=== PATIENT | male | born 1980 | race Caucasian/White ===

== ENCOUNTER 2018-02-27 07:59 | Inpatient (IN) | payer OTHER ==
[2018-02-27] MEDS ORDERED: ONDANSETRON 4 MG/2 ML VIAL IVP ONE (08:13)
[2018-02-27] MEDS ORDERED: THIAMINE HCL 500 MG in NS 100 ML IV ONE (08:14)
[2018-02-27] MEDS ORDERED: FOLIC ACID 1 MG TAB PO ONE (08:14)
--- NOTE | 2018-02-27 08:17 | EDPHY ---
H & P Stated Complaint: not eating, jaundice, lack of balance.... Time Seen by Provider: 02/27/18 08:08 HPI/ROS: CHIEF COMPLAINT: Hyperventilating, jaundiced, confused HISTORY OF PRESENT ILLNESS: The patient is a 37-year-old alcoholic man who was seen here 3 years ago for small-bowel perforation and foreign body with partial small-bowel resection and appendectomy. His brother and dad are here with him and states that he drinks heavily. He has significant ascites. Brother states that over the last month he has been eating less and less each day. No vomiting. No diarrhea. No fever. This morning brother noticed that he also appeared jaundice. They had scheduled rehab therapy for him on Sunday and hoping to make it till then however he became confused and they decided to bring him to the ER. Brother states that he has also hyperventilating like he often does when he has anxiety attacks. Brother also noticed that he had trouble his balance today. Severity: Severe Modifying factors: Worsened REVIEW OF SYSTEMS: Constitutional: denies: chills, fever, recent illness, recent injury EENTM: denies: blurred vision, double vision, nose congestion Respiratory: denies: cough, shortness of breath Cardiac: denies: chest pain, irregular heart rate, lightheadedness, palpitations Gastrointestinal/Abdominal: denies: abdominal pain, diarrhea, nausea, vomiting, blood streaked stools Genitourinary: denies: dysuria, frequency, hematuria, pain Musculoskeletal: denies: joint pain, muscle pain Skin: denies: lesions, rash, jaundice, bruising Neurological: denies: headache, numbness, paresthesia, tingling, dizziness, weakness Hematologic/Lymphatic: denies: blood clots, easy bleeding, easy bruising Immunologic/allergic: denies: HIV/AIDS, transplant 10 systems reviewed and negative except as noted EXAM: GENERAL: Well-appearing, well-nourished and in no acute distress. HEAD: Atraumatic, normocephalic. EYES: Pupils equal round and reactive to light, extraocular movements intact, sclera anicteric, conjunctiva are normal. ENT: TMs normal, nares patent, oropharynx clear without exudates. Moist mucous membranes. NECK: Normal range of motion, supple without lymphadenopathy or JVD. LUNGS: Rapid deep breathing HEART: Regular rate and rhythm without murmurs, rubs or gallops. ABDOMEN: Large and distended, incisional hernia easily reducible, ascites, nontender, no erythema or warmth. BACK: No CVA tenderness, no spinal tenderness, step-offs or deformities EXTREMITIES: 1+ lower extremity edema in NEUROLOGICAL: Cranial nerves II through XII grossly intact. Normal speech, normal gait. 5/5 strength, normal movement in all extremities, normal sensation , normal reflexes PSYCH: Normal mood, normal affect. SKIN: Warm, dry, normal turgor, no visible rashes or lesions. Source: Patient, Family, Old records Exam Limitations: Clinical condition - Medical/Surgical History Hx Asthma: No Hx Chronic Respiratory Disease: No Hx Diabetes: No Hx Cardiac Disease: No Hx Renal Disease: No Hx Cirrhosis: Yes Hx Alcoholism: Yes Hx HIV/AIDS: No Hx Splenectomy or Spleen Trauma: No Other PMH: Liver disease, ascites. HTN. depression. Alcoholism, withdrawal seizure. Partial small-bowel resection, appendectomy - Family History Significant Family History: No pertinent family hx - Social History Smoking Status: Current every day smoker Alcohol Use: Heavy Constitutional: Initial Vital Signs Temperature (C) 37.0 C 02/27/18 08:01 Heart Rate 108 H 02/27/18 08:01 Respiratory Rate 24 H 02/27/18 08:01 Blood Pressure 119/74 02/27/18 08:01 O2 Sat (%) 92 02/27/18 08:01 O2 Delivery Mode Ventilator O2 (L/minute) 2 Allergies/Adverse Reactions: erythromycin base Allergy (Severe, Verified 05/02/14 16:52) Hives Sulfa (Sulfonamide Antibiotics) Allergy (Severe, Verified 05/02/14 16:52) Hives amoxicillin Allergy (Verified 02/27/18 15:18) Home Medications: Medication Instructions Recorded Multivitamins [Multivitamin (*)] 1 each PO DAILY 02/27/18 Medical Decision Making - Diagnostics EKG Interpretation: An EKG obtained and was read and documented in trace view. Please see trace view for full reading and report. Sinus rhythm no acute arrhythmias or ischemic changes. Imaging Results: Imaging Impressions Chest X-Ray 02/27/18 08:47 Impression: 1. Endotracheal tube in good position with the NG tube extending off the inferior margin of the study. 2. Hypoventilatory chest with perihilar and basilar atelectasis. Procedures: Intubation: emergent intubation. While manually bagging the patient and maintaining the airway. A 7.5 endotracheal tube was placed using the Glidescope. It was placed at 22 cm at the teeth. Placement was confirmed by direct visualization, good color change, and bilateral breath sounds with absent gastric sounds. Chest x-ray is pending. Saturations improved significantly and the procedure was successful. Procedure: Arterial line Ultrasound guidance: Using the linear probe covered in a sterile sheath, a short axis of the vein was obtained. The vein was completely compressible and was identified as separate from the adjacent non-compressible arterial structure. Under real-time guidance, the introducer needle was observed up to the vein, and then punctured it. These images were saved on the database. Central line placement: The indication for the procedure was monitoring of blood pressure and pulse. Maximal sterile barrier technique was uses including cap, gown, sterile gloves, large sheet, hand washing and chlorhexidine prep. The area anesthetized with 1% lidocaine. Right femoral artery was punctured with a 18 gauge IV catheter and the catheter sheath introduced. No wire Seldinger technique used. There were no complications. Blood return, bright red blood. The patient is a conscious for the procedure. The procedure was performed by myself. ED Course/Re-evaluation: The patient's lactate is elevated. I do not think he is septic I do not suspect a source of infection. I think he is acidotic from starvation and alcoholic ketoacidosis. We are giving him vitamins. We will give him a 500 cc bolus. His blood pressure is 100/60. I am somewhat concerned about his volume overload however with his leg edema and ascites and borderline hypoxia. 9:00 a.m. nursing staff called me into the room. The patient had stopped breathing. He appeared to be having a seizure. We began to bag him and moved him to the trauma [place]. We continued to bag but was difficult. He also vomited and was incontinent. We could not feel a pulse. We began CPR. I placed a ETT without sedation. The patient hypoxia improved and pulses were regained. It is not 100% clear to me whether not he lost pulses. He received CPR for about 2 -3 minutes. He also received a dose of epinephrine. He began to wake up and villarreal the tube. He was sedated with Valium. Art line was placed. He now has a heart rate of 100 with the saturation 99% and is intubated. We are awaiting post intubation x-ray. Will place an NG tube is well Miles catheter. During the intubation we are called that his sodium was 112. I ordered 3% saline 100 cc be given over 10 min. This is possibly what caused his seizure. 9:10 a.m. I spoke with hospitalist service will accept to the ICU with Dr. Mcclain. 10:20 a.m. The patient continues to do well. He is slightly tachycardic but blood pressure is improved 114/55. 93% oxygen on the ventilator. Will increase his fentanyl drip. I suspect that he may develop withdrawals. We discussed starting propofol drip noted his blood pressure is more adequate. We will defer this to the inpatient team because he is currently about to go upstairs. Differential Diagnosis: Partial list of the Differential diagnosis considered include but were not limited to; alcoholic ketoacidosis CIS, starvation ketoacidosis, hyponatremia, seizure and although unlikely based on the history and physical exam, I also considered acute coronary disease, tumor, spine to bacterial peritonitis. Critical Care Time: Critical care time spent by me, Dr. Epstein exclusive with this patient was 45 minutes, exclusive of the PA time exclusive of procedures. The organ system that was at risk was cardiovascular and I gave fluids, diagnostics, consultation and admission to prevent worsening of the patient's condition - Data Points Laboratory Results: Laboratory Results 02/27/18 08:15 02/27/18 08:15 02/27/18 02/27/18 02/27/18 08:15 08:15 08:15 WBC RBC Hgb Hct MCV MCH MCHC RDW Plt Count MPV Neut % (Auto) Lymph % (Auto) Marin % (Auto) Eos % (Auto) Baso % (Auto) Nucleat RBC Rel Count Absolute Neuts (auto) Absolute Lymphs (auto) Absolute Monos (auto) Absolute Eos (auto) Absolute Basos (auto) Absolute Nucleated RBC Immature Gran % Immature Gran # Platelet Estimate Pappenheimer Bodies Target Cells Oval Macrocytes Smear Review By PT INR APTT Puncture Site NONE GIVEN Patient Temperature 37.0 DEGREES DEGREES pCO2 28 mmHg L mmHg (34-38) pO2 104 mmHg H mmHg (65-75) Total CO2 17 mEq/L L mEq/L (23-27) ABG pH 7.39 (7.35-7.45) ABG HCO3 17 mEq/L L mEq/L (22-26) ABG O2 Saturation 97 % H % (92-95) ABG Base Excess -6.6 mEq/L L mEq/L (-2.5-2.5) VBG Lactic Acid Total O2 Concentration 2.0 LITERS LITERS Sodium 112 mEq/L L* mEq/L (135-145) Potassium 4.4 mEq/L mEq/L (3.5-5.2) Chloride 73 mEq/L L mEq/L (97-110) Carbon Dioxide 17 mEq/l L mEq/l (22-31) Anion Gap 22 mEq/L H mEq/L (6-14) BUN 10 mg/dL mg/dL (7-23) Creatinine 1.4 mg/dL H mg/dL (0.7-1.3) Estimated GFR 57 Glucose 103 mg/dL H mg/dL (70-100) Calcium 7.7 mg/dL L mg/dL (8.5-10.4) Total Bilirubin 18.4 mg/dL H mg/dL (0.1-1.4) Conjugated Bilirubin 15.4 mg/dL H mg/dL (0.0-0.5) Unconjugated Bilirubin 3.0 mg/dL H mg/dL (0.0-1.1) Icterus Index 12 AST 833 IU/L H IU/L (17-59) ALT 131 IU/L H IU/L (21-72) Alkaline Phosphatase 315 IU/L H IU/L (38-126) Ammonia 73.0 uMOL/L H uMOL/L (9.0-30.0) Total Protein 8.3 g/dL H g/dL (6.3-8.2) Albumin 3.9 g/dL g/dL (3.5-5.0) Lipase 780 IU/L H IU/L (23-300) 02/27/1818 02/27/18 08:15 08:15 08:15 WBC 14.76 10^3/uL H 10^3/uL (3.80-9.50) RBC 4.20 10^6/uL L 10^6/uL (4.40-6.38) Hgb 13.4 g/dL L g/dL (13.7-17.5) Hct 35.0 % L % (40.0-51.0) MCV 83.0 fL fL (81.5-99.8) MCH 31.9 pg pg (27.9-34.1) MCHC TNP RDW TNP Plt Count 122 10^3/uL L 10^3/uL (150-400) MPV 10.4 fL fL (8.7-11.7) Neut % (Auto) 84.8 % H % (39.3-74.2) Lymph % (Auto) 7.0 % L % (15.0-45.0) Marin % (Auto) 5.9 % % (4.5-13.0) Eos % (Auto) 0.1 % L % (0.6-7.6) Baso % (Auto) 0.3 % % (0.3-1.7) Nucleat RBC Rel Count 0.0 % % (0.0-0.2) Absolute Neuts (auto) 12.51 10^3/uL H 10^3/uL (1.70-6.50) Absolute Lymphs (auto) 1.04 10^3/uL 10^3/uL (1.00-3.00) Absolute Monos (auto) 0.87 10^3/uL H 10^3/uL (0.30-0.80) Absolute Eos (auto) 0.01 10^3/uL L 10^3/uL (0.03-0.40) Absolute Basos (auto) 0.05 10^3/uL 10^3/uL (0.02-0.10) Absolute Nucleated RBC 0.03 10^3/uL H 10^3/uL (0-0.01) Immature Gran % 1.9 % H % (0.0-1.1) Immature Gran # 0.28 10^3/uL H 10^3/uL (0.00-0.10) Platelet Estimate DECREASED L (ADEQ) Pappenheimer Bodies 2+ H Target Cells 1+ H Oval Macrocytes 3+ H Smear Review By Pending PT 17.9 SEC H SEC (12.0-15.0) INR 1.46 H (0.83-1.16) APTT 43.0 SEC H SEC (23.0-38.0) Puncture Site Patient Temperature pCO2 pO2 Total CO2 ABG pH ABG HCO3 ABG O2 Saturation ABG Base Excess VBG Lactic Acid 7.1 mmol/L H mmol/L (0.7-2.1) Total O2 Concentration Sodium Potassium Chloride Carbon Dioxide Anion Gap BUN Creatinine Estimated GFR Glucose Calcium Total Bilirubin Conjugated Bilirubin Unconjugated Bilirubin Icterus Index AST ALT Alkaline Phosphatase Ammonia Total Protein Albumin Lipase Medications Given: Furosemide (Lasix Injection) 10 mg IV Q6 JOSE J Stop: 08/26/18 12:29 Last Admin: 02/27/18 14:07 Dose: 10 mg Propofol (Diprivan 10 Mg/Ml (Premix)) 100 mls @ 0 mls/hr IV CONT JOSE J; Titrate PRN Reason: Protocol Stop: 08/26/18 11:29 Last Admin: 02/27/18 11:40 Dose: 100 mls Fentanyl/Sodium Chloride (Fentanyl 10 Mcg/Ml (Premix)) 100 mls @ 0 mls/hr IV CONT JOSE J; As Directed PRN Reason: Protocol Stop: 03/09/18 11:29 Last Admin: 02/27/18 11:40 Dose: 100 mls Norepinephrine 4 mg/ Sodium (Chloride) 504 mls @ 0 mls/hr IV CONT JOSE J; Per Protocol PRN Reason: Protocol Stop: 08/26/18 14:59 Last Admin: 02/27/18 14:56 Dose: 504 mls Discontinued Medications Fentanyl (Sublimaze) 100 mcg IVP EDNOW ONE Stop: 02/27/18 09:23 Last Admin: 02/27/18 09:27 Dose: 100 mcg Fentanyl (Sublimaze) 100 mcg IVP EDNOW ONE Stop: 02/27/18 09:27 Last Admin: 02/27/18 09:32 Dose: Not Given Folic Acid (Folic Acid) 1 mg PO EDNOW ONE Stop: 02/27/18 08:15 Last Admin: 02/27/18 11:46 Dose: Not Given Thiamine HCl 500 mg/ Sodium (Chloride) 105 mls @ 210 mls/hr IV ONCE ONE Stop: 02/27/18 08:43 Last Admin: 02/27/18 09:18 Dose: 105 mls Sodium Chloride (Ns) 500 mls @ 3,000 mls/hr IV ONCE ONE Stop: 02/27/18 08:39 Last Admin: 02/27/18 08:39 Dose: 500 mls Sodium Chloride (Sodium Chloride 3%) 100 mls @ 0 mls/hr IV ONCE ONE PRN Reason: As Directed Stop: 02/27/18 09:01 Last Admin: 02/27/18 09:12 Dose: 100 mls Fentanyl/Sodium Chloride (Fentanyl 10 Mcg/Ml (Premix)) 100 mls @ 0 mls/hr IV CONT JOSE J; As Directed PRN Reason: Protocol Stop: 03/09/18 09:29 Last Admin: 02/27/18 09:55 Dose: 100 mls Sodium Chloride (Sodium Chloride 3%) 50 mls @ 0 mls/hr IV ONCE ONE PRN Reason: As Directed Stop: 02/27/18 12:31 Last Admin: 02/27/18 12:30 Dose: 50 mls Albumin Human (Alburx 5) 250 mls @ 0 mls/hr IV ONCE ONE PRN Reason: As Directed Stop: 02/27/18 13:31 Last Admin: 02/27/18 13:45 Dose: 250 mls Midazolam HCl (Versed) 10 mg IVP EDNOW ONE Stop: 02/27/18 10:03 Last Admin: 02/27/18 08:55 Dose: 10 mg Ondansetron HCl (Zofran) 4 mg IVP EDNOW ONE Stop: 02/27/18 08:14 Last Admin: 02/27/18 08:21 Dose: 4 mg Departure - Departure Disposition: [facility] Inpatient Acute Clinical Impression: Hyponatremia, Alcoholic ketoacidosis, Seizure Condition: Critical
--- NOTE | 2018-02-27 08:26 | CPEKG ---
Test Reason : OPEN Blood Pressure : / mmHG Vent. Rate : 096 BPM Atrial Rate : 096 BPM P-R Int : 172 ms QRS Dur : 088 ms QT Int : 367 ms P-R-T Axes : 064 -26 004 degrees QTc Int : 464 ms Sinus rhythm Borderline left axis deviation Confirmed by Timmy Epstein ([id number]) on 02/27/2018 8:26:30 AM Referred By: Confirmed By:Timmy Epstein
[2018-02-27] MEDS ORDERED: NS 500 ML IV ONE (08:30)
[2018-02-27 08:47] LABS: INR 1.46 (0.83-1.16); PROTIME(PATIENT) 17.9 SEC (12.0-15.0)
[2018-02-27] MEDS ORDERED: MIDAZOLAM 10 MG/2 ML VIAL ONE (08:53)
[2018-02-27] MEDS ORDERED: MIDAZOLAM 2 MG/2 ML VIAL ONE (08:53)
[2018-02-27] MEDS ORDERED: EPINEPHrine 1 MG/10 ML SYR IVP ONE (09:00)
[2018-02-27] MEDS ORDERED: SODIUM Cl 3% 100 ML IV ONE ×2 (09:00→20:30)
[2018-02-27] MEDS ORDERED: fentaNYL 100 MCG/2 ML INJ IVP ONE ×2 (09:22→09:26)
[2018-02-27] MEDS ORDERED: fentaNYL/NACL 100 ML IV SCH ×2 (09:23→09:30)
[2018-02-27] MEDS ORDERED: MIDAZOLAM 2 MG/2 ML VIAL IVP ONE (10:02)
[2018-02-27 10:13] LABS: PLATELET COUNT 122 10^3/uL (150-400)
[2018-02-27] MEDS ORDERED: PROPOFOL/EMULSION 1,000 MG/100 ML BOTTLE IV ONE (10:54)
[2018-02-27] MEDS ORDERED: FLUMAZENIL 0.5 MG/5 ML MDV IVP PRN (10:55)
[2018-02-27] MEDS ORDERED: ALTEPLASE 2 MG VIAL IVP PRN (11:24)
[2018-02-27] MEDS: fentaNYL/NACL 100 ML IV SCH ×2 (11:40→20:14)
[2018-02-27] MEDS: PROPOFOL/EMULSION 100 ML IV SCH ×2 (11:40→20:13)
[2018-02-27] MEDS ORDERED: SODIUM Cl 3% 50 ML IV ONE (12:30)
[2018-02-27] MEDS ORDERED: FUROSEMIDE 20 MG/2 ML VIAL IV SCH (12:30)
[2018-02-27] MEDS ORDERED: ALBUMIN 5% 250 ML BOTTLE IV ONE (13:22)
[2018-02-27] MEDS ORDERED: ALBUMIN 5% 250 ML IV ONE (13:30)
--- NOTE | 2018-02-27 14:02 | GHP ---
DATE OF ADMISSION: 02/27/2018 CHIEF COMPLAINT: Altered mental status. HISTORY: The patient is a 37-year-old male brought into the emergency room today by his brother. The patient does have a history of alcoholism. Family had scheduled an intervention to put him into rehab this upcoming Sunday. They had noticed increased intermittent jaundice over the last 2 weeks. He has had almost no oral intake at all for 3 weeks. Last , he "fell off a denise" with his anxiety and depression becoming acutely worse. He has been lying in his room on the floor moaning. Finally, his brother carried him to the emergency room today. They noticed some abdominal distention on their way to the ER. They noticed leg edema yesterday. He has been confused. They are unclear exactly how much alcohol he is drinking as they believe he is hiding it. They visualized him drinking 4-5 beers per night, but he is home alone all day. He has been extraordinarily depressed and also has a history of anxiety with panic disorders and uses alcohol to treat these conditions. He was from his 3 years ago and has not rebounded from that. Upon arrival to the emergency room, he developed a seizure. He required emergent intubation. They thought they lost a pulse, and he briefly got CPR and 1 mg of IV epi, although it is unclear whether he ever truly arrested as it was relatively brief. He was subsequently found to have a sodium of 112, and that is felt to be the reason for his seizure. PAST MEDICAL HISTORY: 1. Depression. 2. Anxiety with panic disorder. 3. Nerve deafness, right ear. PAST SURGICAL HISTORY: Small-bowel resection and appendectomy for foreign body. MEDICATIONS: Please see computer record for full detailed list. ALLERGIES: To sulfa and erythromycin. SOCIAL HISTORY: He does not smoke. He smokes marijuana only very rarely. Alcohol history as above. Family believes his alcohol use has been heavy for the last 4 years. He is from his . His is a cardiovascular surgeon at [employer] in [place]. His went to [place] and then matched at [facility] for CT surgery. The patient did not do well with the move to [place]. They think that is when he started drinking heavily. Three years ago his brother drove to [place] and brought him home, and he has been living with his brother ever since. 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 Due to the patient's mental health and physical health, he has not been working recently. REVIEW OF SYSTEMS: Complete review of systems obtained. Review of systems negative regarding constitutional, HEENT, GI, pulmonary, cardiovascular, , hematologic, musculoskeletal, endocrine, psych, except for positives and negatives as in HPI. Review of systems is done through the father and the brother as the patient is currently intubated. FAMILY HISTORY: Reviewed and noncontributory to presenting complaint. PHYSICAL EXAMINATION: GENERAL: This is a well-developed, well-nourished male, intubated, sedated. EYES: Scleral icterus. Pupils reactive. VITAL SIGNS: Temp is 36.2, pulse 130, blood pressure 90/59, saturating 93% on the vent at 100 %. ENT: Unable to assess hearing. He is endotracheally intubated. NECK: Trachea midline. No thyromegaly. CHEST: Lungs clear to auscultation bilaterally. CARDIOVASCULAR SYSTEM: Tachycardic. No murmur. 2+ lower extremity edema. ABDOMEN: Massively distended, concerning for ascites. Periumbilical hernia. Scar from his previous small bowel resection surgery. SKIN: Warm, dry, and intact without rash. He is jaundiced. MUSCULOSKELETAL: No cyanosis or clubbing. Moving all extremities equally. Otherwise, unable to assess further neuro exam. PSYCH: He is intubated, sedated. LABORATORY DATA: White count 14.73, hematocrit 35, platelets 122. Sodium 112, potassium 4.4, chloride 73, bicarb 17, BUN 10 and creatinine 1.4, glucose 103. Alcohol level is 267. Total bilirubin 18.4, conjugated bilirubin 15.4. AST is 833, ALT is 131. Ammonia is 73, lactate is 7.1. EKG viewed by me. My personal interpretation is normal sinus rhythm. No ST-T wave changes. Chest x- ray: There is an ET tube in good position. ASSESSMENT AND PLAN: 1. Acute hepatic failure, suspect due to alcohol. I have consulted GI and spoken with Dr. Castro. She recommends Doppler ultrasound. However, I spoke with Dr. Uriostegui of Radiology, and given the patient's massive abdominal distention, they cannot see anything on ultrasound. He strongly recommends a CT scan of the abdomen and pelvis with contrast. Should also calculate discriminant function and consider steroids if elevated. I will defer to Dr. Castro. 2. Critical hyponatremia. He will need very slow correction. I have consulted Nephrology, and Dr. Hawkins is managing. 3. Acute respiratory failure. He is intubated. Dr. Knowles will see him. 4. Seizure. This is probably due to his hyponatremia as well as early alcohol withdrawal. 5. Acute hepatic encephalopathy. Will start lactulose if he is able to tolerate it from a GI standpoint. 6. Alcoholism. Anticipate he will withdraw. He is currently intubated. 7. Lactic acid elevation. This was done shortly after his respiratory and possible cardiac arrest. Will recheck it and trend. CODE STATUS: Full. ADMISSION STATUS: 1. Will admit to inpatient as he is critically ill. Anticipate greater than 2 midnights. 2. Critical care time spent is 1 hour. DVT PROPHYLAXIS: He is high risk, and currently I do not see a contraindication to subcu Lovenox. /[id number]/MODL MTDD
--- NOTE | 2018-02-27 14:37 | PDMN ---
Medical Necessity Medical necessity: Pt meets inpt criteria per MD order and [facility] [id number] Liver Disease Complications. 37 y/o w/hx alcoholism admitted w/acute hepatic failure, critical hyponatremia (sodium 112), acute respiratory failure requiring intubation, seizure, acute hepatic encephalopathy, and alcoholism. GI, nephrology, and intensive care consults/following. Est LOS>2MN for critically ill pt.
[2018-02-27 14:40] LABS: HEPATITIS C ANTIBODY TOTAL NEGATIVE (NEGATIVE); HIV TYPE 1 AND 2 NEGATIVE (NEGATIVE)
[2018-02-27] MEDS ORDERED: PROTOCOL POTASSIUM 1 DOSE MISC PRN (14:44)
[2018-02-27] MEDS: NOREPINEPHRINE BITARTRATE 4 MG in NS 500 ML IV SCH ×2 (14:56→19:58)
[2018-02-27] MEDS ORDERED: NOREPINEPHRINE BITARTRATE 4 MG in NS 500 ML IV SCH (15:00)
--- NOTE | 2018-02-27 16:52 | ECHO ---
[email or web address] [address] [address] Main: [phone] Fax: Transthoracic Echocardiogram Name: TIGRE SAM MR#: [id number] Study Date: 02/27/2018 Study Time: 01:31 PM Date of : 1980 Age: 37 year(s) Height: 177.8 cm (70 in.) Weight: 224.98 kg (496 lb.) BSA: 3.07 m2 Gender: Male Examination: Echo Indication: Hypotension/shock Image Quality: Technically Difficult Contrast: Requested by: Joshua Hawkins BP: 78 mmHg/37 mmHg Heart Rate: Rhythm: Indication: Hypotension/shock Procedure Staff Drilling And Production Superintendent: Terri North RDCS Reading Physician: Jaden Logan MD Requesting Provider: Conclusions: Normal size left ventricle. No LV hypertrophy. Global hypercontractility of the left ventricle. The ejection fraction is estimated to be 70-75 %. No regional wall motion abnormality. Normal diastolic LV function. The left atrium is normal in size. The right atrium is normal in size. No pericardial effusion. There is pericardial fat. Measurements: Chambers Valvular Assessment AV/MV Valvular Assessment TV/PV Normal Normal Normal Name Value Range Name Value Range Name Value Range Ao Mary (MM): 3.4 cm (2.2 cm-3.7 AV Vmax: 1.32 m/s (1 m/s-1.7 cm) m/s) IVSd (2D): 0.8 cm (0.6 cm-1.1 AV meanP mmHg ( - ) cm) MV E Vmax: 0.62 m/s ( - ) LVDd (2D): 4.8 cm (4.2 cm-5.9 MV A Vmax: 0.57 m/s ( - ) cm) MV E/A: 1.09 ( - ) LVDs (2D): 2.3 cm (2.1 cm-4 cm) LVPWd (2D): 0.9 cm (0.6 cm-1 cm) LVEF (2D): 83 (>=54 %) EF Range: 70-75 % Continued Measurements: Chambers Valvular Assessment AV/MV Patient: TIGRE SAM Study Date: 02/27/2018 Page 1 of 2 01:31 PM Name Value Name Value LADs: 3.6 cm MV E' Septal: 0.08 m/s LADs Lon.5 cm MV E/E' Septal: 8.20 LA Area: 14.9 cm2 MV E/E' Lateral: 6.30 Findings: Left Ventricle: Normal size left ventricle. No LV hypertrophy. Global hypercontractility of the left ventricle. The ejection fraction is estimated to be 70-75 %. No regional wall motion abnormality. Normal diastolic LV function. Right Ventricle: Normal size right ventricle. Normal RV function. Left Atrium: The left atrium is normal in size. Right Atrium: The right atrium is normal in size. Mitral Valve: The mitral valve is normal in appearance and function. Aortic Valve: The aortic valve is normal in appearance and function. The aortic valve is tri-leaflet. Tricuspid Valve: The tricuspid valve is normal in appearance and function. Trivial tricuspid valve regurgitation. Pulmonic Valve: The pulmonic valve is normal in appearance and function. Aorta: The aorta is normal. Pericardium: No pericardial effusion. There is pericardial fat. (No Signature Object) Patient: TIGRE SAM Study Date: 02/27/2018 Page 2 of 2 01:31 PM [id number]
--- NOTE | 2018-02-27 17:49 | GCON ---
DATE OF CONSULTATION: 02/27/2018 REASON FOR CONSULTATION: Opinion regarding hyponatremia. HISTORY OF PRESENT ILLNESS: Information was gleaned from the patient's brother who lives with the jeffery garcia. The patient is not communicative. This is a 37-year-old gentleman who on December 21, 2017, had a coughing fit, felt something pop. 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 Continued to have pain and continued not to work, was drinking beer fairly heavily and was not eating much, about a cup of yogurt and a few berries daily. Over the course of the past couple of weeks, toby de los santos has had significant increase in anxiety and depression, he and his (no children) are going thr ough a separation/divorce. Yesterday he became more confused, dizzy and unsteady on his feet, he fel l several times. His brother attempted to get him to the emergency department today but was unable. 911 was called and he was transported to [facility]. In the emergency department, it was noted that his serum sodium was 112, the patient seized. He was intubated, CPR was initiated an d 100 cc of 3% saline was given, normal saline was initiated intravenously as well. The patient afte r being intubated and stabilized, was transferred to the intensive care unit. PAST MEDICAL HISTORY: 1. History of seizure 3 years ago due to alcohol ingestion. 2. Recent anxiety and depression, he had an appointment this coming Sunday with a psychiatrist. ALLERGIES: Erythromycin and sulfa. HOME MEDICATIONS: None. FAMILY HISTORY: Positive for hypertension. Negative for diabetes or alcohol abuse. SOCIAL HISTORY: He is but going through a separation/divorce. 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 He is currently living with his brother due to the separation wi th his , he has no children. He does not use tobacco. He consumes quite a bit of alcohol. No m arijuana or other recreational drugs. REVIEW OF SYSTEMS: Unobtainable from the patient. PHYSICAL EXAMINATION: VITAL SIGNS: Blood pressure is 90/59, pulse 130, respirations 16, temperature 36.2 degrees. He has received 100 cc of 3% saline and 500 cc of normal saline. GENERAL: He is int ubated and not responsive on the vent. HEENT: Sclerae are somewhat icteric. His complexion is alfredo . NECK: No lymphadenopathy or thyromegaly. HEART: Tachycardic, regular. No rub. No S3. I can hanny reciate no murmur. LUNGS: Coarse breath sounds bilaterally. No rhonchi or wheezes. ABDOMEN: Disten ded with what appears to be ascites. No tenderness to palpation noted. EXTREMITIES: +1 to 2 edema b ilaterally. LYMPH: No palpable lymphadenopathy. MUSCULOSKELETAL: No effusions or tenderness. LABORATORY: Serum sodium is 112, we will repeat his serum sodium now. Potassium 4.4, chloride 73, CO 2 17, BUN 10, creatinine 1.4, glucose 103, albumin 3.9, AST 833, lipase 780, total bilirubin of 18.4, ALT 131, calcium 7.7, anion gap is 22. WBC 14.76, hemoglobin 13.4, hematocrit 35, platelet count 12 2,000. INR 1.46. pH 7.39, pCO2 28, pO2 104 on 2 L nasal cannula. Urinalysis: Specific gravity of 1. 018, pH 5, +2 protein, 10 to 15 RBCs, 50-180 hyaline casts and granular casts. Blood cultures x2 hav e been drawn. Those are yet pending. His ammonia level is 73. Alcohol 267. IMPRESSION: 1. Hyponatremia, which is profound. This is likely due to beer potomania, he has been drinking quit e a lot of beer, not eating much in the way of food. 2. Depression and anxiety. 3. Acidosis, possibly due to ischemia. 4. Elevated liver enzymes, question is this ischemic or alcohol induced. 5. Marked elevation in his total bilirubin of 18.4. 6. Tachycardia. 7. Hypotension. RECOMMENDATIONS: 1. Will check a stat renal function panel right now and see where things are. 2. Intubation and sedation. 3. Supportive care. 4. Normal saline is running right now, we may need to back off a bit depending on what his sodium lo oks like. 5. Will likely need some diuresis as he has ascites and peripheral edema. 6. There is no indication for urgent dialysis at this point. I have discussed the aforementioned wi th the patient's father and brother with whom he lives. All questions were answered to their satisfa ction. Thank you for allowing me to participate in the care of your patient. If there are any questions, pl ease do not hesitate to contact us. We will be following along with you. /[id number]/MODL
[2018-02-27] MEDS: SODIUM BICARBONATE 50 MEQ/50 ML SYR IV SCH (17:51)
[2018-02-27] MEDS: LACTULOSE 20 GM/30 ML UDCUP PO SCH ×2 (17:51→23:50)
--- NOTE | 2018-02-27 18:19 | GCON ---
CRITICAL-CARE CONSULTATION. DATE OF CONSULTATION: 02/27/2018 HISTORY OF PRESENT ILLNESS: This patient is a 37-year-old male with a history of alcoholism with alc oholic seizures in the past, who was admitted today with obtundation. He initially had been having a bout a month of poor oral intake and increasing alcohol consumption with history of depression. At h ome he was minimally responsive and was brought to the emergency department where there were concerns about sepsis. He was getting IV fluids and had a witnessed seizure there. He had some nausea and v omiting during that period of time, and they had difficulty finding a pulse, so started CPR. This wa s very brief, lasting about 5 minutes. He was intubated at that time and labs returned to show a sod ium of 112. He was therefore sedated and brought to the intensive care unit. Chest x-ray shows good placement of the endotracheal tube without obvious pneumonia. He had a host of other laboratory abn ormalities which I will describe below. According to his family, he really had been drinking quite a bit, not eating anything, primarily beer. He has had alcohol withdrawal seizures in the distant pas t and is thought to have some cirrhosis, but has not seen a doctor for the last 3 years. REVIEW OF SYSTEMS: Otherwise negative. PAST MEDICAL HISTORY: Includes alcoholism, hypertension, alcohol withdrawal seizures, right ear deaf ness, small bowel perforation in the past after he ingested a bread clip, cirrhosis as described, dep ression, anxiety. PAST SURGICAL HISTORY: Includes left radial ORIF in 1995, exploratory laparotomy because of bread cl ip ingestion and with a resultant appendectomy. SOCIAL HISTORY: He is a current smoker as well as alcohol but no recreational drugs I am aware of. FAMILY HISTORY: Noncontributory. MEDICATIONS: Currently include Lovenox, Pepcid, fentanyl, Lasix, Ativan, norepinephrine, propofol, t hiamine. PHYSICAL EXAM: VITAL SIGNS: At time of my evaluation, his blood pressure was 87/43, and he had rece ived 2 boluses of albumin at that time. Respirations were 20, heart rate of 57, oxygen saturation 10 0% on the ventilator. GENERAL: He was an obese male who was sedated appropriately. No apparent dis tress and was not using any accessory muscles for breathing. He was on a ventilator. HEENT: Pupils are equally round and reactive to light, nonicteric, noninjected. NECK: Supple without obvious adenop athy. LUNGS: Breath sounds were distant, but clear to auscultation bilaterally without wheezes, rubs or rales. HEART: Regular rate and rhythm without obvious murmur. ABDOMEN: Protuberant and firm wi th hypoactive bowel tones. I did not detect a fluid wave. EXTREMITIES: Two to 3+ bilateral edema. OBJECTIVE DATA: Includes a white count of 14.7, hematocrit 35, platelets of 122. INR 1.46. ABG marianne ws a pH 7.39, pCO2 28, pO2 104, bicarb 17, saturation 97%. Sodium was initially 112, now 113, potass ium 4.5, chloride 81, bicarb 13 with an anion gap of 19, BUN 10, creatinine 1.4, glucose of 88, calci um 6.7, total bilirubin 18.4, direct bilirubin 15.4, AST 833, ALT 131, alkaline phosphatase 315, ammo bryan was 73, albumin 3.2, lipase 780. Urinalysis showed mayur urine without evidence of obvious infec tion, but there were hyaline and granular casts. Tylenol was undetectable. Alcohol level is 267. H ep serologies and HIV were negative. A chest x-ray showed hypoventilation but no clear pneumonia. A n ultrasound was a poor study but did not show any significant ascites. ASSESSMENT/PLAN: 1. Cardiac arrest. This was in the emergency department. It was very brief. He did get epinephrin e x1. It is possible that it was just difficult to find because he is morbidly obese with some edema . In any case there are no obvious cardiac issues but echo is pending at this time and his prognosis is guarded until we can make a better neurological exam. 2. Seizure. This is likely due to his hyponatremia, given he has had seizures in the past. I think he is highly susceptible to these. Renal is involved. He is not currently getting any anticonvulsi ve therapy, though we may want to consider Keppra depending on any further activity. 3. Hyponatremia. This is quite severe. Renal was involved as I said, we will slowly correct this. There is a consideration that this was beer potomania that caused this and will watch for the approp riate rates of correction on that one. 4. Hypotension. He developed hypotension after being in the ICU and on the ventilator, that may be what is driving this versus infection. Blood cultures are pending at this time. He has received 2 b oluses of albumin without subsequent rise. A PICC line has been placed. He started on norepinephrin e. At this time we will continue to hold his Lasix for now and follow up on his echocardiogram. I d o not see an obvious infectious source. I do not feel that this is septic shock. We will watch clos anila. 5. Transaminitis. This is consistent with alcoholic hepatitis, but his discriminant function is jus t about 32, which is the cut off for giving steroids. I would hold steroids for now and continue to follow these. I do not think this is Tylenol overdose since it was normal, and there is minimal asci vern on ultrasound. A CT is pending at this time. 6. Alcohol withdrawal, CIWA protocol once he is able to do so. A total of about 45 minutes of critical care time was required for this critically ill patient. /[id number]/MODL
[2018-02-27] MEDS ORDERED: FAMOTIDINE 20 MG/NACL 50 ML IV SCH (21:00)
[2018-02-27 22:37] LABS: CREATINE KINASE 587 IU/L (0-224)
[2018-02-27] MEDS: NOREPINEPHRINE BITARTRATE 16 MG in NS 250 ML IV SCH (23:49)
[2018-02-28] MEDS: SODIUM BICARBONATE 50 MEQ/50 ML SYR IV SCH ×4 (00:03→16:31)
[2018-02-28] MEDS: VASOPRESSIN 25 UNIT in NS 250 ML IV SCH ×3 (00:20→23:09)
[2018-02-28] MEDS ORDERED: D50W 25 GM/50 ML SYR IVP ONE ×2 (00:58→08:45)
[2018-02-28] MEDS: D50W 25 GM/50 ML SYR IVP PRN ×3 (01:04→12:21)
--- NOTE | 2018-02-28 02:48 | GCON ---
DATE OF CONSULTATION: 02/27/2018 CHIEF COMPLAINT: Jaundice. HISTORY OF PRESENT ILLNESS: I am asked to see this patient in consultation by Dr. Mcclain for chief co mplaint of jaundice. The patient is an unfortunate 37-year-old with history of alcohol abuse, who wa s brought in by family. He had a seizure, is now intubated. I am unable to get any history from the patient. History is obtained by his father, who is present at the bedside, and from the chart. Fat her tells me that he had another incident a few years ago where he had a seizure, required CPR, was a dmitted to [facility] where "his electrolytes were abnormal," but he was unsure if there was any liver injury at that time. The patient has been somewhat isolated and likely drinking heavy over past 8 weeks, as he is undergoing a divorce. This morning, family noticed that he appeared jaundic ed and brought him to the emergency room. He did have a witnessed seizure in the emergency room, was then intubated. Per the father, there is no known history of liver disease or hepatitis in this pat ient. There is no family history for liver disease. He is unaware if he is taking any other medicat ions. ALLERGIES: To sulfa and erythromycin. HOME MEDICATIONS: Listed as multivitamins. PAST MEDICAL HISTORY: Notable for depression and anxiety, with panic disorder, history of alcohol ab use. FAMILY HISTORY: Negative for liver disease. SOCIAL HISTORY: Notable for alcohol abuse. REVIEW OF SYSTEMS: Unable to obtain, as patient is intubated. PHYSICAL EXAM: Afebrile at 36.2, BP 90/46, pulse 111. He is intubated and unconscious, unresponsive . Eyes have scleral icterus. OROPHARYNX: An ET tube is in place. Cardiovascular is regular rate a nd rhythm. Somewhat tachycardic. Chest is coarse breath sounds bilaterally with ET tube in place. Abdomen is a very distended, enlarged abdomen, although not tympanic. NEUROLOGIC: Unable to assess, as he is intubated. SKIN: He does have no rashes, but pitting edema in the lower extremities. LABORATORY DATA: Sodium of 113, potassium is 4.5, BUN and creatinine are 10 and 1.8. An alkaline ph osphatase is 316, AST is 388, ALT is 131, total bilirubin is 18.4. Prothrombin time is 17.9 with an INR of 1.46. Lipase is 780. White count 14, H and H of 13.1 and 35, platelets 122. Ultrasound of the abdomen shows hepatomegaly with steatosis. There is splenomegaly and a small amoun t of ascites. ASSESSMENT: 1. Jaundiced. 2. Elevated liver function tests. 3. Hepatomegaly. 4. Encephalopathy with elevated ammonia, which is 73. The patient is intubated. Cause of his elevated liver function tests is likely from alcohol; however, his transaminase elevatio n is higher than what is usually seen with alcoholic hepatitis, so I am concerned that there may be o ther contributing factors. Unclear if he took other substances, and I would recommend we at least ch angel a Tylenol level. Also, consider thrombosis, given his massive hepatomegaly. PLAN: 1. Check Tylenol level. 2. Check hepatitis panel. 3. Recommend ultrasound with Doppler flow. 4. Supportive care as you are doing and . 5. We will need to follow prothrombin time closely. 6. May consider steroids for alcoholic hepatitis, as his discriminant factor is greater than 32; how ever, would want to rule out other concerning factors or any sign of infection. It is unclear if thi s patient would be a transplant candidate, given his alcohol abuse, but we will follow. Thank you for this consult. /[id number]/MODL
[2018-02-28 06:17] LABS: INR 2.16 (0.83-1.16); PROTIME(PATIENT) 24.1 SEC (12.0-15.0)
[2018-02-28 06:24] LABS: PLATELET COUNT 105 10^3/uL (150-400)
[2018-02-28] MEDS ORDERED: ALBUMIN 25% 100 ML IV ONE ×2 (07:41→07:52)
--- NOTE | 2018-02-28 08:17 | SOAPPROG ---
SOAP Progress Note Assessment/Plan: Assessment: oligo/anuric FOX hyponatremia EF on echo 70-75% + AG met acidosis hepatorenal syndrome ETOH liver disease hepatitis, appears to be non-infectious Plan: discussed situation with family, with HRS, no indication for HD/CRRT, all questions answered start scheduled albumin start midodrine start SQ Octreotide with his recent ETOH, probably not a candidate for transplant 02/28/18 08:12 Subjective: intubated, on vent opens eyes, sometimes appears to follow commands trying to pull out ET tube/NG not communicative Objective: Vital Signs Temp Pulse Resp BP Pulse Ox 37.7 C 130 H 31 H 111/48 L 85 L 02/28/18 07:00 02/28/18 07:00 02/28/18 07:00 02/28/18 07:00 02/28/18 07:00 Laboratory Results 02/28/18 05:25 02/27/18 02/28/18 03/01/18 05:59 05:59 05:59 Intake Total 2964 Output Total 10 Balance 2954 PT 24.1 SEC (12.0-15.0) H 02/28/18 05:25 INR 2.16 (0.83-1.16) H 02/28/18 05:25 Physical Exam - Physical Exam General Appearance: other (ill appearing) EENT: other (icteric sclera) Respiratory: other (coarse bs bilat, no rh or wh) Cardiac/Chest: other (regular, tachy, no rub or murmur) Abdomen: other (quiet, distended) Skin: other (jaundice) Neuro/Psych: other (awake/arouseable) ICD10 Worksheet Patient Problems: Problems Problem Status Onset Alcoholic ketoacidosis Acute Hyponatremia Acute Seizure Acute Retroperitoneal fluid collection Acute
[2018-02-28] MEDS ORDERED: ALBUMIN 25% 50 ML SOLN IV ONE (08:29)
[2018-02-28] MEDS: OCTREOTIDE 100 MCG/1 ML INJ SC SCH ×3 (08:36→21:20)
[2018-02-28] MEDS: MIDODRINE HCL 5 MG TAB PO SCH ×3 (08:36→16:00)
[2018-02-28] MEDS: PANTOPRAZOLE SODIUM 40 MG VIAL IVP SCH (08:37)
[2018-02-28] MEDS: PROPOFOL/EMULSION 100 ML IV SCH ×4 (08:37→23:10)
[2018-02-28] MEDS ORDERED: LORazepam 2 MG/ML INJ IV ONE (08:45)
[2018-02-28] MEDS ORDERED: ENOXAPARIN 40 MG/0.4 ML SYR SC SCH (09:00)
[2018-02-28] MEDS: ERTAPENEM 0.5 GM in NS 50 ML IV SCH (09:32)
[2018-02-28] MEDS: THIAMINE HCL 500 MG in NS 100 ML IV SCH (09:34)
[2018-02-28] MEDS: NOREPINEPHRINE BITARTRATE 16 MG in NS 250 ML IV SCH (09:34)
--- NOTE | 2018-02-28 10:05 | PDINTPN ---
Histology Supervisor Progress Note Assessment/Plan: 37 M with long history of etoh abuse in setting of depression hwo had been increasing consumption recently and became obtunded so brought to ED. On arrival he had a witnessed seizure followed by loss of pulse so brieef CPR was initiated, lasting only about 5 minutes with rapid ROSC after epi x one. He was also intubated emergently without obvious complication. Work up revealed Na 112 and transaminitis with AST>>ALT and TB 18. At the time there was no obvious infection and his LFTs were thought o tmostly c/w etoh hepatitis. * Hypotension- he was normotensive prior to intubation and "runs high" according to family. he was given albumin with minimal response so started NE last PM which has exscalated to 35 mcg along with vasopressin. Etiology could be sepsis (eg acute cholangitis, SBP maybe, other unknown source), relative adrenal insufficiency (hard to measure and not clear, but will start hydrocortisone now), fulminant hepatic failure, mesenteric ischemia, and less likely cardiogenic since his echo was essentially normal. Will add epi, hydrocortisone, and additional albumin (scheduled by renal) and reduce NE dose. Abdominal CT results pending. Target SBP> 90 rather than MAP as this can be misleading in liver disease. BP appears to be responsive to fentanyl, so will minimize it for now and use propofol/precedex. occasional ativan OK * Cardiac arrest- very brief and clinical picture not consistent with shock liver or anoxic encephalopathy. Continue close observation. check troponin * altered mental status- because of hypotension, his sedation was reduced today - though not following commands, he is wide awake and restless. Issue could easily be related to hepatic disease, though I would hold on lactulose for now. No head CT just yet. * Acute respiratory failure with severe hypoxia- I suspect a component of hepato -pulmonary disease since his cxr shows low volumes and relatively minor infiltrate in LLL (versus atelectasis). Vent currently set at [id number]%+10 peep (just raised to 12 peep). I dont think his peep is contributing to his hypotension. * Acute liver failure with increasing transaminases, INR, and dropping glucose. Hep serologies and HIV negative and abdo CT results pending. Considered acute cholangitis so added ertapenem today and FU blood cultures and CT. Await GI input today; since added hydrocortisone for BP/poor pressor response, this should also cover his worsening discriminant function. Doubt pancreatitis, perforation, or SBP (since ascites is minimal). His recent etoh renders him a non-candidate for transplant. * FOX- discussed with renal- most consistent with hepato-renal syndrome which has a poor prognosis and does not correct with dialysis. His creatinine is rapidly rising and UOP of 10 ml in 12 hrs. Recheck BMP now to and q 6 hours to keep track of electrolytes for prognostic reasons. Started octreotide and scheduled albumin this am. * Prophylaxis- PPI and SCDs. Lovenox dc'd this am. 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 Subjective: increasing pressor requirement overnight, now on levophed at 35 mcg plus vasopressin. Poor oxygenation as well and no uop Objective: Vital Signs Temp Pulse Resp BP Pulse Ox 37.7 C 132 H 28 H 111/48 L 85 L 02/28/18 07:00 02/28/18 07:40 02/28/18 07:40 02/28/18 07:00 02/28/18 07:40 Laboratory Results 02/28/18 05:25 02/28/18 07:54 02/27/18 02/28/18 03/01/18 05:59 05:59 05:59 Intake Total 2964 Output Total 10 Balance 2954 PT 24.1 SEC (12.0-15.0) H 02/28/18 05:25 INR 2.16 (0.83-1.16) H 02/28/18 05:25 Physical Exam - Physical Exam General Appearance: mild distress, obtunded, obese EENT: PERRL/EOMI, scleral icterus (R), scleral icterus (L) Neck: supple Respiratory: lungs clear, normal breath sounds, decreased breath sounds, No respiratory distress, No accessory muscle use Cardiac/Chest: regular rate, rhythm, edema, tachycardia Abdomen: non-tender, distended, guarding, hepatomegaly, splenomegaly, No normal bowel sounds, No soft Skin: warm/dry, jaundice, No normal color, No cyanosis Lymphatic: no adenopathy Extremities: pedal edema Neuro/Psych: cognition abnormalities, No abnormal director translational II-XII ICD10 Worksheet Patient Problems: Problems Problem Status Onset Alcoholic ketoacidosis Acute Hyponatremia Acute Seizure Acute Retroperitoneal fluid collection Acute
[2018-02-28] MEDS: LACTULOSE 20 GM/30 ML UDCUP PO SCH ×3 (10:15→21:20)
[2018-02-28] MEDS: HYDROCORTISONE 100 MG/2 ML VIAL IVP SCH ×3 (10:15→21:20)
--- NOTE | 2018-02-28 10:18 | SOAPPROG ---
SOAP Progress Note Assessment/Plan: Assessment: Acute liver failure likely with HRS very poor prognosis. Not liver transplant candidate due to active ETOH use. Suspect acute liver injury on top of chronic ETOH liver disease. Given presentation suspect ischemic liver DDX also includes toxin or viral. Lower suspicion for cholangitis Plan: Agree with supportive care including empiric steroids and antibiotics Agree with Albumin Await CT scan to better evaluated bile ducts and US with doppler to r/o thrombosis Will discuss with hepatology 02/28/18 10:11 Subjective: Cc jaundice pt intubated sedated Objective: Vital Signs Temp Pulse Resp BP Pulse Ox 37.7 C 121 H 21 H 97/20 L 93 02/28/18 07:00 02/28/18 09:00 02/28/18 09:00 02/28/18 09:00 02/28/18 09:00 Laboratory Results 02/28/18 05:25 02/28/18 07:54 02/27/18 02/28/18 03/01/18 05:59 05:59 05:59 Intake Total 2964 Output Total 10 Balance 2954 PT 24.1 SEC (12.0-15.0) H 02/28/18 05:25 INR 2.16 (0.83-1.16) H 02/28/18 05:25 Physical Exam - Physical Exam General Appearance: unresponsive Respiratory: lungs clear Cardiac/Chest: tachycardia Abdomen: distended ICD10 Worksheet Patient Problems: Problems Problem Status Onset Retroperitoneal fluid collection Acute Hyponatremia Acute Alcoholic ketoacidosis Acute Seizure Acute
[2018-02-28] MEDS ORDERED: PHYTONADIONE 10 MG in NS 50 ML IV ONE (11:22)
[2018-02-28] MEDS ORDERED: HYDROCORTISONE 100 MG/2 ML VIAL IVP SCH (14:00)
[2018-02-28] MEDS ORDERED: D10W 1,000 ML IV SCH (15:00)
[2018-02-28] MEDS ORDERED: SODIUM BICARBONATE 150 MEQ in D5W 1,000 ML IV SCH (15:45)
--- NOTE | 2018-02-28 16:04 | HOSPPROG ---
Hospitalist Progress Note Assessment/Plan: * Shock - possible sepsis vs. hypovolemia - but suspect due to fulminant liver failure -2 pressors - IV Levophed + IV vasopressin -empiric antibiotics, steroids * Fulminant hepatic failure -suspect acute Etoh hepatitis superimposed on background cirrhosis -not liver transplant candidate due to active Etoh -alternative serologies sent * ARF -probably hepatorenal syndrome * Acute respiratory failure - on vent * Critical hyponatremia -slow correction per nephrology * Acute hepatic encephalopathy -Lactulose if tolerated by GI tract * Seizure due to hyponatremia * Brief PEA arrest during seizure * Persistent lactate elevation -due to hypoperfusion Prognosis very guarded, especially if HRS then futile. CC time - 1 hour Subjective: 2 pressors, on vent, family at bedside Objective: Vital Signs Temp Pulse Resp BP Pulse Ox 38.0 C 120 H 23 H 100/44 L 88 L 02/28/18 15:00 02/28/18 15:00 02/28/18 15:00 02/28/18 15:00 02/28/18 15:00 Laboratory Results 02/28/18 05:25 02/27/18 02/28/18 03/01/18 05:59 05:59 05:59 Intake Total 2964 Output Total 10 200 Balance 2954 -200 PT 24.1 SEC (12.0-15.0) H 02/28/18 05:25 INR 2.16 (0.83-1.16) H 02/28/18 05:25 - Physical Exam Constitutional: no apparent distress, appears nourished, not in pain, obese Cardiovascular: tachycardia, edema Respiratory: no respiratory distress, no rales or rhonchi, clear to auscultation Gastrointestinal: soft, non-tender abdomen, ascites, hepatosplenomegally, distension Skin: no rashes or abrasions, no fluctuance, no induration, other (jaundice, signs of liver disease) Neurologic: No AAOx3 Psychiatric: encephalopathic, poor insight, poor judgement, poor memory, No interacting appropriately ICD10 Worksheet Patient Problems: Problems Problem Status Onset Retroperitoneal fluid collection Acute Hyponatremia Acute Alcoholic ketoacidosis Acute Seizure Acute
[2018-02-28 16:44] LABS: HEPATITIS A ANTIBODY IGM (BCH) NEGATIVE (NEGATIVE); HEPATITIS B CORE AB IGM NEGATIVE (NEGATIVE); HEPATITIS B SURFACE ANTIGEN NEGATIVE (NEGATIVE)
[2018-02-28 16:55] LABS: HEPATITIS C ANTIBODY TOTAL NEGATIVE (NEGATIVE)
[2018-02-28] MEDS: EPINEPHrine 1 MG in NS 250 ML IV SCH ×2 (17:57→19:40)
[2018-02-28] MEDS: LORazepam 2 MG/ML INJ IVP PRN (19:16)
[2018-02-28] MEDS: PETROLAT,WHT/MIN OIL/SOD CHL 3.5 GM OPHT.OINT EACHEYE SCH (20:08)
[2018-02-28] MEDS ORDERED: FAMOTIDINE 20 MG/NACL 50 ML IV SCH (21:00)
[2018-02-28] MEDS: EPINEPHrine 8 MG in NS 250 ML IV SCH (23:09)
[2018-03-01] MEDS: SODIUM BICARBONATE 50 MEQ/50 ML SYR IV SCH ×3 (01:31→12:25)
[2018-03-01] MEDS: PETROLAT,WHT/MIN OIL/SOD CHL 3.5 GM OPHT.OINT EACHEYE SCH ×2 (01:37→08:02)
[2018-03-01] MEDS: NOREPINEPHRINE BITARTRATE 16 MG in NS 250 ML IV SCH (01:41)
[2018-03-01] MEDS: PROPOFOL/EMULSION 100 ML IV SCH ×4 (03:20→13:22)
[2018-03-01 05:53] LABS: PLATELET COUNT 74 10^3/uL (150-400)
[2018-03-01] MEDS: HYDROCORTISONE 100 MG/2 ML VIAL IVP SCH (06:02)
[2018-03-01 06:51] LABS: INR 3.27 (0.83-1.16); PROTIME(PATIENT) 33.1 SEC (12.0-15.0)
[2018-03-01] MEDS: MIDODRINE HCL 5 MG TAB PO SCH (08:02)
[2018-03-01] MEDS: ERTAPENEM 0.5 GM in NS 50 ML IV SCH (08:02)
[2018-03-01] MEDS: LACTULOSE 20 GM/30 ML UDCUP PO SCH (08:02)
[2018-03-01] MEDS: OCTREOTIDE 100 MCG/1 ML INJ SC SCH (08:03)
[2018-03-01] MEDS: PANTOPRAZOLE SODIUM 40 MG VIAL IVP SCH (08:03)
[2018-03-01] MEDS: THIAMINE HCL 500 MG in NS 100 ML IV SCH (08:03)
[2018-03-01] MEDS: VASOPRESSIN 25 UNIT in NS 250 ML IV SCH (09:18)
[2018-03-01] MEDS: EPINEPHrine 8 MG in NS 250 ML IV SCH (09:18)
[2018-03-01] MEDS ORDERED: MIDODRINE HCL 5 MG TAB PO SCH (10:18)
--- NOTE | 2018-03-01 10:19 | SOAPPROG ---
SOAP Progress Note Assessment/Plan: Assessment/Plan: FOX: low urine sodium, very concerning for hepatorenal syndrome, anuric with Cr now up to 4.7. - Given his overall picture, he is a very poor candidate for any form of dialysis, as this will not change his overall course. - Dr. Hawkins had a long discussion with family yesterday, and I had an extensive discussion with Dr. Knowles today that dialysis is not an option for this patient in his current state. - Will continue to follow along and monitor closely. Shock: pt on three IV pressors, midodrine and stress dose steroids, will increase midodrine. Hyponatremia: Na now up to 120, will continue to monitor closely on current treatments. Acidemia: from lactic acidosis, which is worsening despite treatment for shock as above. Subjective: No acute events overnight. Pt remains on three pressors, lactate rising, on vent with 100% FiO2. He continues to be anuric. Objective: Vital Signs Temp Pulse Resp BP Pulse Ox 37.7 C 118 H 22 H 105/42 L 94 03/01/18 10:00 03/01/18 10:00 03/01/18 10:00 03/01/18 10:00 03/01/18 10:00 Laboratory Results 03/01/18 05:10 03/01/18 Unknown 02/28/18 03/01/18 03/02/18 05:59 05:59 05:59 Intake Total 2964 3688 Output Total 10 810 Balance 2954 2878 PT 33.1 SEC (12.0-15.0) H 03/01/18 05:10 INR 3.27 (0.83-1.16) H 03/01/18 05:10 General: no acute distress Eyes: sclerae icteric OP: intubated CV: RRR Resp: intubated and on vent, +rhales Abd: soft Ext: +2 edema BLE Skin: jaundiced ICD10 Worksheet Patient Problems: Problems Problem Status Onset Alcoholic ketoacidosis Acute Hyponatremia Acute Seizure Acute Retroperitoneal fluid collection Acute
--- NOTE | 2018-03-01 10:45 | SOAPPROG ---
SOAP Progress Note Assessment/Plan: Assessment: Acute liver failure likely with HRS very poor prognosis. Suspect acute liver injury on top of chronic ETOH liver disease. Given presentation suspect ischemic liver DDX also includes toxin or viral. Doubt cholangitis no dilated ducts on CT scan. Discussed with boat ride operator no new rec. Plan: Agree with supportive care including empiric steroids and antibiotics Agree with Albumin Await US with doppler to r/o thrombosis 03/01/18 10:43 Subjective: cc Jaundice pt intubated sedated Objective: Vital Signs Temp Pulse Resp BP Pulse Ox 37.7 C 118 H 22 H 105/42 L 94 03/01/18 10:00 03/01/18 10:00 03/01/18 10:00 03/01/18 10:00 03/01/18 10:00 Laboratory Results 03/01/18 05:10 03/01/18 Unknown 02/28/18 03/01/18 03/02/18 05:59 05:59 05:59 Intake Total 2964 3688 Output Total 10 810 Balance 2954 2878 PT 33.1 SEC (12.0-15.0) H 03/01/18 05:10 INR 3.27 (0.83-1.16) H 03/01/18 05:10 Physical Exam - Physical Exam General Appearance: unresponsive Respiratory: normal breath sounds Cardiac/Chest: regular rate, rhythm Abdomen: distended ICD10 Worksheet Patient Problems: Problems Problem Status Onset Alcoholic ketoacidosis Acute Hyponatremia Acute Seizure Acute Retroperitoneal fluid collection Acute
--- NOTE | 2018-03-01 10:55 | HOSPPROG ---
Hospitalist Progress Note Assessment/Plan: * Shock - suspect due to fulminant liver failure -2 pressors - IV Levophed + IV vasopressin -empiric antibiotics, steroids -family likely to withdraw care today, discussed with Dr. Knowles * Fulminant hepatic failure - suspect acute Etoh hepatitis superimposed on background cirrhosis, rising PT/INR is poor prognostic indicator -IV hydrocortisone for DF 110 -not a liver transplant candidate due to active Etoh -alternative serologies sent, discussed with Dr. Castro * FOX - suspect hepatorenal syndrome * Acute respiratory failure - on vent * Critical hyponatremia -slow correction per nephrology * Acute hepatic encephalopathy -Lactulose if tolerated by GI tract * Seizure due to hyponatremia * Brief PEA arrest during seizure * Persistent lactate elevation -due to hypoperfusion Prognosis remains very guarded, especially if HRS, then futile. Per family discussion today, they are likely to withdraw care. Discussed with Dr. Knowles and care team at multidisciplinary rounds CC time - 30 min Subjective: Pt is ventilated, sedated. Not following commands. Received IV ativan today. Objective: Vital Signs Temp Pulse Resp BP Pulse Ox 37.7 C 118 H 22 H 105/42 L 94 03/01/18 10:00 03/01/18 10:00 03/01/18 10:00 03/01/18 10:00 03/01/18 10:00 Laboratory Results 03/01/18 05:10 03/01/18 Unknown 02/28/18 03/01/18 03/02/18 05:59 05:59 05:59 Intake Total 2964 3688 Output Total 10 810 Balance 2954 2878 PT 33.1 SEC (12.0-15.0) H 03/01/18 05:10 INR 3.27 (0.83-1.16) H 03/01/18 05:10 - Physical Exam Constitutional: no apparent distress, chronically ill appearing Eyes: icteric sclera Cardiovascular: regular rate and rhythym Respiratory: no respiratory distress, reduced air movement Gastrointestinal: other (soft, moderate-severe taut distention, nontender, though pt unresponsive) Skin: warm, other (jaundiced) Psychiatric: encephalopathic ICD10 Worksheet Patient Problems: Problems Problem Status Onset Alcoholic ketoacidosis Acute Hyponatremia Acute Seizure Acute Retroperitoneal fluid collection Acute
--- NOTE | 2018-03-01 14:28 | PDINTPN ---
Loss Prevention Auditor Progress Note Assessment/Plan: 37 M with long history of etoh abuse in setting of depression hwo had been increasing consumption recently and became obtunded so brought to ED. On arrival he had a witnessed seizure followed by loss of pulse so brieef CPR was initiated, lasting only about 5 minutes with rapid ROSC after epi x one. He was also intubated emergently without obvious complication. Work up revealed Na 112 and transaminitis with AST>>ALT and TB 18. At the time there was no obvious infection and his LFTs were thought o tmostly c/w etoh hepatitis. * Hypotension- he was normotensive prior to intubation and "runs high" according to family. he was given albumin with minimal response so started NE which has escalated to 35 mcg along with vasopressin. Most consistent with fulminant hepatic failure. Now more stable on epi and hydrocortisone. * Cardiac arrest- very brief and clinical picture not consistent with shock liver or anoxic encephalopathy. Continue close observation. Troponin unremarkable. * altered mental status- combination of hepatic encephalopathy and hypotension. * Acute respiratory failure with severe hypoxia- I suspect a component of hepato -pulmonary disease since his cxr shows low volumes and relatively minor infiltrate in LLL (versus atelectasis). Vent currently set at [id number]%+10 peep (just raised to 12 peep). I dont think his peep is contributing to his hypotension. * Acute on chronic fulminant hepatic failure presumably 2/2 etoh, since workup otherwise negative (BERNARDINO pending). Slight reduction in transaminases today likely reflect progressive liver failure since INR still rising. Extensive family discussions totalling at least 45-60 minutes. Patient is non-decisional and plan to most likely withdraw support today after recheck INR per family request. Reasonable approach given exceedingly poor prognosis since not a liver transplant candidate and discussed with GI/hepatology and not a dialysis candidate as per renal. * FOX- most consistent with hepato-renal syndrome which has a poor prognosis and does not correct with dialysis. Started octreotide, midodrine and scheduled albumin 02/28. * Prophylaxis- PPI and SCDs. Lovenox dc'd this am. * Dispo- currently DNR * * critical care time at least 45 minutes. 03/01/18 14:09 Subjective: decreased pressor requirement overnight- responded better with epi>NE Objective: Vital Signs Temp Pulse Resp BP Pulse Ox 38.2 C 124 H 28 H 106/35 L 90 L 03/01/18 14:00 03/01/18 14:00 03/01/18 14:00 03/01/18 14:00 03/01/18 14:00 Laboratory Results 03/01/18 05:10 03/01/18 Unknown 02/28/18 03/01/18 03/02/18 05:59 05:59 05:59 Intake Total 2964 3688 Output Total 10 810 Balance 2954 2878 PT 33.1 SEC (12.0-15.0) H 03/01/18 05:10 INR 3.27 (0.83-1.16) H 03/01/18 05:10 Physical Exam - Physical Exam General Appearance: no apparent distress, obtunded EENT: PERRL/EOMI, scleral icterus (R), scleral icterus (L) Neck: supple Respiratory: lungs clear, normal breath sounds, decreased breath sounds, crackles (rare), No respiratory distress, No accessory muscle use Cardiac/Chest: regular rate, rhythm, edema, tachycardia Abdomen: non-tender, organomegaly, distended Skin: warm/dry, jaundice, No cyanosis Extremities: normal capillary refill, pedal edema Neuro/Psych: cognition abnormalities, No abnormal dough molder hand II-XII ICD10 Worksheet Patient Problems: Problems Problem Status Onset Alcoholic ketoacidosis Acute Hyponatremia Acute Seizure Acute Retroperitoneal fluid collection Acute
[2018-03-01 14:34] LABS: INR 3.96 (0.83-1.16); PROTIME(PATIENT) 38.3 SEC (12.0-15.0)
[2018-03-01 15:38] VITALS: BP 98/38
[2018-03-01] MEDS ORDERED: LORazepam 2 MG/ML INJ IVP PRN (15:39)
[2018-03-01] MEDS: LORazepam 2 MG/ML INJ IVP PRN (16:40)
--- NOTE | 2018-03-01 16:48 | ASMTCMCOM ---
CM Note CM Note Notes: Proxy for patient was established. Patient's brother will serve as his medical decision maker. Proxy document is in the front of the chart. The family has decided to remove life support today. CM is available for any further needs. Date Signed: 03/01/2018 04:48 PM Electronically Signed By:Vilma Adkins LCSW
[2018-03-02] MEDS ORDERED: THIAMINE HCL 100 MG TAB PO SCH (10:55)
--- NOTE | 2018-03-03 17:38 | PDDCSUM ---
Discharge Summary Discharge Summary: 37 M with long history of etoh abuse in setting of depression who had been increasing consumption recently and became obtunded so brought to ED. On arrival he had a witnessed seizure followed by loss of pulse so brief CPR was initiated, lasting only about 5 minutes with rapid ROSC after one dose of Epi. He was also intubated emergently. Work up revealed Na 112 and transaminitis with AST>>ALT and Tbili of 18. At the time there was no obvious infection and his LFTs were thought mostly c/w severe etoh hepatitis in setting of chronic alcoholic liver disease. He developed renal failure thought secondary to hepatorenal syndrome and was not a candidate for dialysis. Given his multi- organ system failure in the setting of worsening hepatic failure with rising INR and respiratory failure and overall grim prognosis, the family appropriately opted to withdraw care. He was extubated and peacefully shortly thereafter.
== END 2018-03-01 17:00 | disposition expired | DRG 432 ==
LOC: SUPCPDRO 07:59 → OBSVTOIN 09:41 → EEVIPCON 09:41 → F2N 10:18
PROVIDERS: ADMIT Internal Medicine; ATTEND Internal Medicine
PROC: 0BH18EZ Insertion of Endotracheal Airway into Trachea, Via Natural or Artificial Opening Endoscopic (ICD-10-PCS; principal; 2018-02-27)
PROC: 5A1945Z Respiratory Ventilation, 24-96 Consecutive Hours (ICD-10-PCS; principal; 2018-02-27)
PROC: 02HV33Z Insertion of Infusion Device into Superior Vena Cava, Percutaneous Approach (ICD-10-PCS; 2018-02-27)
DX: K70.40 Alcoholic hepatic failure without coma (principal); E87.0 Hyperosmolality and hypernatremia; J96.01 Acute respiratory failure with hypoxia; K70.31 Alcoholic cirrhosis of liver with ascites; K70.11 Alcoholic hepatitis with ascites; N17.9 Acute kidney failure, unspecified; F10.20 Alcohol dependence, uncomplicated; R74.0 Nonspecific elevation of levels of transaminase and lactic acid dehydrogenase [LDH]; R56.9 Unspecified convulsions; I46.9 Cardiac arrest, cause unspecified; F41.8 Other specified anxiety disorders; H90.41 Sensorineural hearing loss, unilateral, right ear, with unrestricted hearing on the contralateral side; F17.210 Nicotine dependence, cigarettes, uncomplicated; Z66 Do not resuscitate; R57.9 Shock, unspecified; E87.2 Acidosis
CPT/HCPCS: 82390-90; 86255-90; 86663-90; 96374; C1751; G0472; G0480; J0171; J1335; J1720; J1940; J2060; J2250; J2270; J2354; J2405; J2704; J3010; J3411; J3430; P9041; P9047